=== PATIENT | male | born 1980 | race Caucasian/White ===

== ENCOUNTER → 2024-03-28 09:07 | Outpatient (REF) | payer BC, SELFPAY | LOC: RCS 09:07 | PROVIDERS: ATTENDING PHYSICIAN Internal Medicine Interventional Cardiology; FAMILY PHYSICIAN Family Medicine | DX: I25.2 Old myocardial infarction (principal); I25.5 Ischemic cardiomyopathy | CPT/HCPCS: 93017; 93350 ==